=== PATIENT | female | born 1985 | race Caucasian/White ===

== ENCOUNTER 2017-11-18 15:38 | Emergency (ER) | payer SELFPAY ==
[2017-11-18] MEDS ORDERED: Acetaminophen 500 MG TAB ONE (16:01)
--- NOTE | 2017-11-18 17:58 | RAD ---
THREE VIEWS RIGHT HAND: 11/18/17 COMPARISON: None. HISTORY: Fall, landed on right hand, swelling. FINDINGS: A metallic ring overlies the fourth proximal phalanx, slightly limiting assessment. No displaced frac ture or evidence of dislocation is seen. IMPRESSION: No acute fracture or dislocation noted. POS: [facility]
== END 2017-11-18 17:09 | disposition home or self-care (01) ==
LOC: MADERS 15:38
DX: S69.91XA Unspecified injury of right wrist, hand and finger(s), initial encounter (principal); F17.210 Nicotine dependence, cigarettes, uncomplicated; W19.XXXA Unspecified fall, initial encounter